=== PATIENT | male | born 1960 | race Caucasian/White ===

== ENCOUNTER 2020-04-26 19:14 | Emergency (ER) | payer SELFPAY ==
[~2020-04-26] VITALS: Ht 172.7 cm; Wt 73.0 kg
[2020-04-26 23:04] LABS: HEMATOCRIT 39.4 % (42.0-52.0); HEMOGLOBIN 13.7 g/dL (14.0-18.0); MEAN CORPUSCULAR HEMOGLOBIN 31.6 pg (28.0-32.0); PLATELET 210 x1000/uL (130-400); RED BLOOD CELL COUNT 4.33 mill/uL (4.7-6.1); RED CELL DISTRIBUTION WIDTH 13.7 % (11.6-14.6)
[2020-04-26 23:08] LABS: CHLORIDE 101 mEq/L (98-107)
[2020-04-26 23:49] LABS: ETHANOL BLOOD 332 mg/dL
[2020-04-27 00:58] VITALS: BP 112/64
== END 2020-04-27 00:59 | disposition home or self-care (01) ==
LOC: ER 19:14
DX: F10.129 Alcohol abuse with intoxication, unspecified (principal); Y90.0 Blood alcohol level of less than 20 mg/100 ml
CPT/HCPCS: 36415; 80048; 80320; 84484; 85027; 93005; 99284; G0480